=== PATIENT | female | born 1990 | race American Indian/Alaskan Native ===

== ENCOUNTER 2021-06-12 12:47 | Inpatient (IN) | payer MEDICAID ==
--- NOTE | 2021-06-12 21:40 | History and Physical Report ---
History of Present Illness Date of examination: 06/12/21 Date of admission: 06/12/21 12:47 Chief complaint: Admitted for proceedings towards delivery of , per vaginam. History of present illness: Patient was co-managed with [facility] due to history of grand multiparity. [facility] recommendations included planned delivery at 37-39 wks. Past History Past Medical History: no pertinent history Past Surgical History: no surgical history Social history: no significant social history, single - Obstetrical History Expected Date of Delivery: 06/26/21 Actual Gestation: 38 Week(s) 0 Day(s) : 8 Para: 7 Number of Pregnancies: 7 Medications and Allergies Allergies Allergy/AdvReac Type Severity Reaction Status Date / Time No Known Allergies Allergy Unverified 06/12/21 15:21 Review of Systems All systems: negative Cardiovascular: no chest pain Respiratory: no cough, no shortness of breath Gastrointestinal: no vomiting Neurological: no head injury - Vital Signs Vital signs: Vital Signs Pulse Pulse Ox 65 77 L 06/12/21 13:22 06/12/21 13:22 Temp Pulse Resp BP Pulse Ox 98.0 F 84 20 102/51 100 06/12/21 19:26 06/12/21 15:37 06/12/21 19:26 06/12/21 13:24 06/12/21 19:27 - Physical Exam Lungs: Positive: Normal air movement Abdomen: Positive: soft, distention, normal bowel sounds, other (pendulous abd, obese) Uterus: Positive: enlarged, other (Term ) Extremities: Positive: normal Deep Tendon Reflex Grade: Normal +2 - Obstetrical FHR: category 1 Results All other labs normal. Assessment and Plan - Patient Problems (1) Grand multiparity Current Visit: Yes Status: Acute (2) Obesity Current Visit: Yes Status: Acute Plan to address problem: Admit for induction.
[2021-06-12] MEDS ORDERED: MINERAL OIL 30 ML ORAL LIQD PO PRN (21:51)
[2021-06-12] MEDS ORDERED: METHYLERGONOVINE MALEATE 0.2 MG/ML VIAL IM PRN (21:51)
[2021-06-12] MEDS ORDERED: NALOXONE 0.4 MG/1 ML INJ IV PRN (21:51)
[2021-06-12] MEDS ORDERED: LIDOCAINE (2%) 20 MG/1 ML VIAL 20 ML MDV INFILTRATI ONE (21:51)
[2021-06-12] MEDS ORDERED: ACETAMINOPHEN 325 MG TAB PO PRN (21:51)
[2021-06-12] MEDS ORDERED: NalbUPHINE 10 MG/1 ML INJ IV PRN (21:51)
[2021-06-12] MEDS ORDERED: TERBUTALINE 1 MG/1 ML INJ SUB-Q PRN (21:51)
[2021-06-12] MEDS ORDERED: ePHEDrine SULFATE 50 MG/1 ML INJ IV PRN (21:51)
[2021-06-12] MEDS ORDERED: LOPERAMIDE 2 MG CAP PO PRN (21:51)
[2021-06-12] MEDS ORDERED: CARBOPROST TROMETHAMINE 250 MCG/1 ML INJ IM PRN (21:51)
[2021-06-12] MEDS ORDERED: miSOPROStol 200 MCG TAB PR PRN (21:51)
[2021-06-12] MEDS ORDERED: OXYTOCIN 10 UNIT/1 ML INJ IM PRN (21:51)
[2021-06-12] MEDS ORDERED: BUTORPHANOL 2 MG/1 ML INJ IV PRN (21:51)
[2021-06-12] MEDS ORDERED: ONDANSETRON 4 MG/2 ML INJ IV PRN (21:51)
[2021-06-12] MEDS ORDERED: OXYTOCIN DRIP 30 UNITS/500 ML BAG IV SCH (22:00)
[2021-06-12] MEDS: LACTATED RINGERS 1,000 ML IV SCH (22:57)
[2021-06-13 01:32] LABS: Hematocrit 26.5 % (30.3-42.9); Hemoglobin 8.7 gm/dl (10.1-14.3); Mean Corpuscular HGB Conc 33 % (30-34); Mean Corpuscular Volume 77 fl (79-97); Platelet Count 284 K/mm3 (140-440); Red Blood Count 3.43 M/mm3 (3.65-5.03); Red Cell Distribution Width 16.2 % (13.2-15.2)
[2021-06-13] MEDS: LACTATED RINGERS 1,000 ML IV SCH ×2 (06:30→10:37)
[2021-06-13] MEDS ORDERED: OXYTOCIN DRIP 30 UNITS/500 ML BAG IV SCH (08:30)
--- NOTE | 2021-06-13 09:12 | Anesthesia Consultation ---
Anesthesia Consult and Med Hx Date of service: 06/13/21 - Airway Anesthetic Teeth Evaluation: Good ROM Head & Neck: Adequate Mental/Hyoid Distance: Adequate Mallampati Class: Class II Intubation Access Assessment: Probably Good - Pulmonary Exam CTA: Yes - Cardiac Exam Cardiac Exam: RRR - Pre-Operative Health Status ASA Pre-Surgery Classification: ASA3 Proposed Anesthetic Plan: Epidural - Pulmonary Hx Asthma: No COPD: No Hx Pneumonia: No - Cardiovascular System Hx Hypertension: Yes (CHTN) - Central Nervous System Hx Seizures: No Hx Psychiatric Problems: No - Endocrine Hx Renal Disease: No Hx End Stage Renal Disease: No Hx Hypothyroidism: No Hx Hyperthyroidism: No - Hematic Hx Anemia: No Hx Sickle Cell Disease: No - Other Systems Hx Alcohol Use: No Hx Obesity: Yes
[2021-06-13] MEDS ORDERED: NALOXONE 2 MG/2 ML INJ IV PRN (10:00)
[2021-06-13] MEDS ORDERED: fentaNYL-BUPIV 2 MCG/ML-0.125% 200 MCG/100 ML BAG EPIDURAL SCH (10:00)
[2021-06-13] MEDS ORDERED: ePHEDrine SULFATE 50 MG/1 ML INJ IV PRN (10:00)
--- NOTE | 2021-06-13 10:07 | Progress Note ---
Labor Epidural - Labor Epidural Start Time: 09:54 Stop Time: 10:04 Performed by:: JOZEF SOSA Procedure: Patient is requesting epidural for labor pain. H&P, and labs reviewed. Procedure explained, questions answered, consent obtained. Patient in sitting position with blood pressure cuff and pulse ox on and working. Timeout performed immediately before start of procedure. Sterile chlorahexadine 0.5% prep/drape. 3 mL 1% lidocaine skin wheal at L[3]-L[4]. 18-gauge Photolitec epidural needle advanced to ifat-ja-yvzmaegedk with saline at 9 cm. Epidural catheter advanced to 15 cm, negative aspiration for blood and csf, negative test dose 3 ml 1.5% lidocaine with epinephrine. Epidural dexmedetomidine [30] mcg administered. Sterile steri-strips and tegaderm applied, followed by tape reinforcement. Patient tolerated procedure well. Abner SCHWARZ
--- NOTE | 2021-06-13 13:33 | Event Note ---
Date: 06/13/21 Saw patient. No complaints reported. Vag exam: Normal vulva. External os 5cm. Internal os difficult to evaluate - but was open. Vtx out of the pelvis. Bedside ultrasound confirmed presentation. Plan: Establish epidural block and start pitocin.
--- NOTE | 2021-06-13 13:35 | Event Note ---
Date: 06/13/21 ARM done. Clear fluid. IUPC & scalp electrode placed. Cervix 4cm dilated, 80% effaced, station 0.
[2021-06-13] MEDS ORDERED: diphenhydrAMINE 25 MG CAP PO PRN (17:03)
[2021-06-13] MEDS ORDERED: HYDROcodone/ACETAMINOPHEN 5-325 MG TAB PO PRN (17:03)
[2021-06-13] MEDS ORDERED: KETOROLAC 30 MG/1 ML INJ IV PRN (17:03)
[2021-06-13] MEDS ORDERED: PROMETHAZINE 25 MG RECT SUPP PR PRN (17:03)
[2021-06-13] MEDS ORDERED: MAGNESIUM HYDROXIDE (MOM) ORAL LIQD UDC PO PRN (17:03)
[2021-06-13] MEDS ORDERED: WITCH HAZEL/ GLYCERIN PAD TP PRN (17:03)
[2021-06-13] MEDS ORDERED: PROMETHAZINE 25 MG TAB PO PRN (17:03)
[2021-06-13] MEDS ORDERED: ACETAMINOPHEN 325 MG TAB PO PRN (17:03)
[2021-06-13] MEDS ORDERED: LANOLIN/ZINC/DIMETHICONE (LANSINOH) 7 GM TP PRN (17:03)
[2021-06-13] MEDS ORDERED: ONDANSETRON 4 MG/2 ML INJ IV PRN (17:03)
--- NOTE | 2021-06-13 17:14 | Procedure Note ---
OB Delivery Note - Delivery Date of Delivery: 06/13/21 Surgeon: AUSTIN FARRAR Estimated blood loss: <100cc - Vaginal Delivery position: OP Intrapartum events: none Delivery induction: oxytocin Delivery augmentation: rupture of membranes Delivery monitor: internal FHT, internal uterine Route of delivery: Delivery placenta: spontaneous, expressed Delivery cord: nuchal cord, 3 umbilical vessels Episiotomy: none Delivery laceration: none Anesthesia: epidural - Infant A at 1 minute: 9 at 5 minutes: 9 Gender: Female
[2021-06-13] MEDS: IBUPROFEN 600 MG TAB PO SCH (23:43)
[2021-06-14 05:28] LABS: Hematocrit 23.6 % (30.3-42.9); Hemoglobin 7.7 gm/dl (10.1-14.3)
[2021-06-14] MEDS: IBUPROFEN 600 MG TAB PO SCH ×4 (06:11→23:52)
[2021-06-14] MEDS: PRENATAL VIT27-FE FUMARATE-FOLIC ACID VIT TAB PO SCH (10:34)
--- NOTE | 2021-06-14 11:06 | Progress Note ---
Assessment and Plan - Patient Problems (1) Grand multiparity Current Visit: Yes Status: Acute (2) Obesity Current Visit: Yes Status: Acute Qualifiers: Obesity type: due to excess calories Body mass index: BMI 50.0-59.9 (3) (normal spontaneous vaginal delivery) Current Visit: Yes Status: Acute Plan to address problem: Under routine observation. On iron and vitamins for anemia. (4) Anemia affecting eighth Current Visit: Yes Status: Acute Subjective - Subjective Date of service: 06/14/21 Principal diagnosis: Grandmultiparity Interval history: Patient was co-managed with [facility] due to history of grand multiparity. [facility] recommendations included planned delivery at 37-39 wks. Patient reports: appetite normal, voiding normally, pain well controlled, ambulating normally (Decided not to grough with tubal sterilzation.) Objective - Vital Signs Latest vital signs: Vital Signs Temp Pulse Resp BP Pulse Ox Pulse Ox Pulse Ox 06/14/21 08:00 98.4 F 76 20 107/57 100 06/14/21 06:11 18 06/14/21 05:26 98.2 F 81 20 107/60 100 06/13/21 23:43 18 06/13/21 23:35 98.4 F 83 20 121/56 97 06/13/21 20:07 99 99 06/13/21 18:28 88 98 06/13/21 18:23 77 109/56 97 06/13/21 18:18 71 98 06/13/21 18:13 77 98 06/13/21 18:08 77 106/53 97 06/13/21 18:03 84 97 06/13/21 17:58 76 98 06/13/21 17:53 80 116/57 97 06/13/21 17:48 84 97 06/13/21 17:43 74 98 06/13/21 17:38 74 111/58 97 06/13/21 17:33 71 99 06/13/21 17:28 75 99 06/13/21 17:23 80 98 06/13/21 17:18 90 98 06/13/21 17:15 82 101/53 06/13/21 17:13 85 97 06/13/21 17:08 84 98 06/13/21 17:03 87 98 06/13/21 16:58 85 98 06/13/21 16:53 91 H 98 06/13/21 16:48 86 99 06/13/21 16:44 87 123/56 06/13/21 16:43 89 99 06/13/21 16:40 41 L 0 L 06/13/21 16:38 103 H 100 06/13/21 16:33 101 H 100 06/13/21 16:28 94 H 99 06/13/21 16:23 90 95 06/13/21 16:18 88 98 06/13/21 16:14 81 105/55 06/13/21 16:13 82 97 06/13/21 16:08 81 97 06/13/21 16:03 86 96 06/13/21 15:58 84 97 06/13/21 15:53 84 97 06/13/21 15:48 76 100 06/13/21 15:45 74 103/52 06/13/21 15:43 77 100 06/13/21 15:38 71 100 06/13/21 15:33 77 100 06/13/21 15:28 87 100 06/13/21 15:23 83 100 06/13/21 15:18 70 100 06/13/21 15:15 75 120/58 06/13/21 15:13 72 100 06/13/21 15:08 74 100 06/13/21 15:03 70 100 06/13/21 15:00 98.3 F 06/13/21 14:58 72 100 06/13/21 14:53 73 100 06/13/21 14:48 74 100 06/13/21 14:45 80 118/61 06/13/21 14:43 71 100 06/13/21 14:38 74 100 06/13/21 14:33 70 100 06/13/21 14:28 76 100 06/13/21 14:23 69 100 06/13/21 14:18 64 100 06/13/21 14:15 64 113/56 06/13/21 14:13 63 100 06/13/21 14:08 67 100 06/13/21 14:03 67 100 06/13/21 13:58 68 100 06/13/21 13:53 67 100 06/13/21 13:48 67 100 06/13/21 13:45 64 109/55 06/13/21 13:43 69 100 06/13/21 13:38 64 100 06/13/21 13:33 75 100 06/13/21 13:28 72 100 06/13/21 13:23 64 100 06/13/21 13:18 77 100 06/13/21 13:13 77 100 06/13/21 13:12 73 110/57 06/13/21 13:08 74 100 06/13/21 13:03 77 100 06/13/21 13:00 98.3 F 06/13/21 12:58 79 100 06/13/21 12:57 78 97/49 06/13/21 12:53 91 H 100 06/13/21 12:49 61 94 06/13/21 12:48 94 06/13/21 12:44 79 125/58 06/13/21 12:43 92 H 100 06/13/21 12:38 76 100 06/13/21 12:33 90 100 06/13/21 12:28 86 99 06/13/21 12:27 76 107/53 06/13/21 12:23 81 97 06/13/21 12:18 84 99 06/13/21 12:14 80 116/57 06/13/21 12:13 71 97 06/13/21 12:08 83 98 06/13/21 12:03 75 98 06/13/21 11:58 77 98 06/13/21 11:56 76 97/51 06/13/21 11:53 73 97 06/13/21 11:48 75 97 06/13/21 11:43 77 98 06/13/21 11:42 76 95/49 06/13/21 11:38 71 98 06/13/21 11:33 75 98 06/13/21 11:28 85 97 06/13/21 11:27 79 100/51 06/13/21 11:23 84 97 06/13/21 11:18 77 98 06/13/21 11:13 77 96 06/13/21 11:12 76 91/44 06/13/21 11:08 78 97 06/13/21 11:03 82 97 Intake and Output 06/13/21 06/14/21 06/14/21 23:59 07:59 15:59 Intake Total 120 Output Total 100 400 Balance -100 -400 120 Intake: Oral 120 Output: Urine 100 400 Void 100 400 Other: Total, Intake Amount 120 Total, Output Amount 100 400 # Voids Void 1 Estimated Blood Loss 150 - Exam Breasts: Present: deferred Lungs: Present: Normal air movement Abdomen: Present: soft (obese, pendulous.) Uterus: Present: normal, firm Extremities: Present: normal Deep Tendon Reflex Grade: Normal +2 - Labs Labs: Abnormal lab results 06/14/21 Range/Units 05:04 Hgb 7.7 L (10.1-14.3) gm/dl Hct 23.6 L (30.3-42.9) %
--- NOTE | 2021-06-14 12:13 | Post Anesthesia Evaluation ---
- Post Anesthesia Evaluation Patient Participated: Yes Airway Patent: Yes Stable Respiratory Function: Yes Nausea/Vomiting: No Temp > 96.8F: Yes Pain Manageable: Yes Adequeate Hydration: Yes Anesthesia Complications: No Block Receding Appropriately: Yes
[2021-06-15] MEDS: IBUPROFEN 600 MG TAB PO SCH ×2 (05:27→12:15)
[2021-06-15] MEDS: PRENATAL VIT27-FE FUMARATE-FOLIC ACID VIT TAB PO SCH (11:16)
--- NOTE | 2021-06-15 12:52 | Progress Note ---
Assessment and Plan - Patient Problems (1) Grand multiparity Current Visit: Yes Status: Acute (2) Obesity Current Visit: Yes Status: Acute Qualifiers: Obesity type: due to excess calories Body mass index: BMI 50.0-59.9 (3) (normal spontaneous vaginal delivery) Current Visit: Yes Status: Acute Plan to address problem: For home today. (4) Anemia affecting eighth Current Visit: Yes Status: Acute Subjective - Subjective Date of service: 06/15/21 Principal diagnosis: Grandmultiparity Interval history: Patient was co-managed with [facility] due to history of grand multiparity. [facility] recommendations included planned delivery at 37-39 wks. 06/15/21 PPD#2. Had no complaints and wants to return home. Patient reports: appetite normal, voiding normally, pain well controlled, ambulating normally : doing well Objective - Vital Signs Latest vital signs: Vital Signs Temp Pulse Resp BP BP Pulse Ox Pulse Ox 06/15/21 08:00 99 06/15/21 07:57 98.0 F 66 16 108/53 98 06/15/21 05:27 20 06/15/21 00:00 98.8 F 74 18 108/69 06/14/21 23:52 20 06/14/21 19:50 99 06/14/21 16:31 98.2 F 76 20 117/57 100 06/14/21 14:05 16 Pulse Ox 06/15/21 08:00 99 06/15/21 07:57 06/15/21 05:27 06/15/21 00:00 06/14/21 23:52 06/14/21 19:50 99 06/14/21 16:31 06/14/21 14:05 Intake and Output 06/14/21 06/15/21 06/15/21 23:59 07:59 15:59 Intake Total 680 240 Balance 680 240 Intake: Oral 440 240 Intake, Free Water 240 Other: Total, Intake Amount 200 240 # Voids Void 1 1 1 - Exam Breasts: Present: normal Lungs: Present: Normal air movement Abdomen: Present: soft, normal bowel sounds Extremities: Present: normal Deep Tendon Reflex Grade: Normal +2
--- NOTE | 2021-06-15 12:55 | Discharge Summary ---
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 Booklet Call your doctor immediately for: * Fever > 100.5 * Heavy vaginal bleeding ( >1 pad per hour) * Severe persistent headache * Shortness of breath * Reddened, hot, painful area to leg or breast * Drainage or odor from incision. * Keep incision clean and dry at all times and follow doctor's instructions regarding bathing/showering - Follow up plan Follow up: AUSTIN FARRAR MD [Primary Care Provider] - 7 Days
--- NOTE | 2021-06-15 14:02 | Consultation ---
History of Present Illness - Reason for Consult Consult date: 06/15/21 Reason for consult: [place] score of 10 - Chief Complaint Chief complaint: Admitted for proceedings towards delivery of , per vaginam. - History of Present Psychiatric Illness Ankit Arreola is a 30 year old female with no prior psychiatry history. In my interview with the patient, she reports feeling depressed sometimes and states that it has been going on for a while now. The patient states she feel depressed two days out seven days in a week; she rates depression as a 2/10 today. The patient is naive to psychotropic medications and she is not receptive to starting medication. She denies any current suicidal/homicidal ideation and oj es hallucinations. PAST PSYCHIATRIC HISTORY: Denies Diagnoses: Denies Suicide attempts or Self-harm behavior: Denies Prior psychiatric hospitalizations:Yes Substance Abuse history: Denies Previous psychiatric medications tried:Denies Outpatient treatment: Denies PAST MEDICAL HISTORY: None reported or document Family Psychiatric History: None reported or documented SOCIAL HISTORY Marital Status: Single Living Arrangements: Lives with mother Employment Status: unknown Access to guns/weapons: Denies Education: 9th grade History of Abuse:unknown Legal History: unknown REVIEW OF SYSTEMS Constitutional: Negative for weight loss ENT: Negative for stridor Respiratory: Negative for cough or hemoptysis All other systems reviewed and are negative MENTAL STATUS EXAMINATION General Appearance and Behavior: Age appropriate, good hygiene, wearing appropriate clothes, calm and cooperative polite with questioning. Cooperation: engaged Psychomotor Behavior: Psychomotor normal Mood: ok Affect and affective range: congruent with stated mood Thought Process:Goal directed Thought Not suicidal Speech:normal Suicidal Ideation: Denies Homicidal Ideation: Denies Hallucinations: Denies Delusions: None elicited Impulse Control: Normal Insight and Judgment: Limited insight and judgment Memory: Abnormal Attention: attentive Orientation: alert and oriented Assessment and Plan (1) Current Visit: Yes Status: Acute Treatment Plan Risks, benefits and alternatives of medications discussed with the patient, questions answered and consent obtained from patient. PSYCHOTHERAPY: Supportive psychotherapy provided MEDICAL: Per primary team DELIRIUM PRECAUTIONS: Please re-orient patient frequently, keep lights on during the day, and minimize benzodiazepines and opiates as these medications could worsen patient's confusion. AUDIT SPEC: Defer to primary DISPOSITION: Do not recommend acute inpatient psychiatric hospitalization at this time. FOLLOW-UP: Will sign off The patient is advised to followup with outpatient psychiatry The patient is advised that if suicidal/homicidal ideation or any endangering thoughts arise to call the crisis hot line or go to the ED. Thank you for the consult. Please contact with any questions and/or concerns. Medications and Allergies Allergies Allergy/AdvReac Type Severity Reaction Status Date / Time No Known Allergies Allergy Verified 06/12/21 22:18 Home Medications Medication Instructions Recorded Confirmed Last Taken Type No Known Home Medications [No 06/14/21 06/14/21 Unknown History Reported Home Medications] Active Meds: Active Medications Hydrocodone Bitart/Acetaminophen (Hydrocodone/Acetaminophen 5-325 Mg Tab) 2 each PO Q6H PRN PRN Reason: Pain, Moderate (4-6) Bisacodyl (Bisacodyl 10 Mg Rect Supp) 10 mg KS BID PRN PRN Reason: Constipation Diphenhydramine HCl (Diphenhydramine 25 Mg Cap) 25 mg PO Q6H PRN PRN Reason: Itching Ibuprofen (Ibuprofen 600 Mg Tab) 600 mg PO Q6HR [facility] Last Admin: 06/15/21 12:15 Dose: 600 mg Documented by: Ketorolac Tromethamine (Ketorolac 30 Mg/1 Ml Inj) 30 mg IV Q6H PRN PRN Reason: Pain, Moderate (4-6) Stop: 06/18/21 17:02 Magnesium Hydroxide (Magnesium Hydroxide (Mom) Oral Liqd Udc) 30 ml PO HS PRN PRN Reason: Constipation Multi-Ingredient Ointment (Lanolin/Zinc/Dimethicone (Lansinoh) 7 Gm) 1 applic TP PRN PRN PRN Reason: Sore Nipples Multivitamins/Iron/Calcium ( Qms59-Vz Fumarate-Folic Acid Vit Tab) 1 each PO QDAY [facility] Last Admin: 06/15/21 11:16 Dose: 1 each Documented by: Promethazine HCl (Promethazine 25 Mg Rect Supp) 25 mg KS Q6H PRN PRN Reason: Nausea And Vomiting Promethazine HCl (Promethazine 25 Mg Tab) 25 mg PO Q6H PRN PRN Reason: Nausea And Vomiting Witch Mickie/Glycerin (Witch Mickie/ Glycerin Pad) 1 each TP PRN PRN PRN Reason: Hemorrhoid/cleansing/soothing Last Admin: 06/15/21 13:17 Dose: 1 each Documented by: Mental Status Exam - Vital signs Last Vital Signs Temp 98.0 F 06/15/21 07:57 Pulse 66 06/15/21 07:57 Resp 16 06/15/21 07:57 BP 108/53 06/15/21 07:57 Pulse Ox 99 06/15/21 08:00 Results Result Diagrams: 06/14/21 05:04 All other labs normal.
[2021-06-15 16:00] VITALS: BP 121/58
== END 2021-06-15 16:55 | disposition home or self-care (01) | DRG 774 ==
LOC: LD 12:47 → OB 06-13 20:44
PROVIDERS: ADMIT Obstetrics & Gynecology; ATTEND Obstetrics & Gynecology
PROC: 10E0XZZ Delivery of Products of Conception, External Approach (ICD-10-PCS; principal; 2021-06-13)
PROC: 3E0R3BZ Introduction of Anesthetic Agent into Spinal Canal, Percutaneous Approach (ICD-10-PCS; 2021-06-13)
PROC: 00HU33Z Insertion of Infusion Device into Spinal Canal, Percutaneous Approach (ICD-10-PCS; 2021-06-13)
PROC: 10907ZC Drainage of Amniotic Fluid, Therapeutic from Products of Conception, Via Natural or Artificial Opening (ICD-10-PCS; 2021-06-13)
DX: O99.214 Obesity complicating childbirth (principal); O10.92 Unspecified pre-existing hypertension complicating childbirth; Z3A.38 38 weeks gestation of pregnancy; Z64.1 Problems related to multiparity; Z37.0 Single live birth; E66.09 Other obesity due to excess calories; O69.81X0 Labor and delivery complicated by cord around neck, without compression, not applicable or unspecified; O99.02 Anemia complicating childbirth; Z68.43 Body mass index [BMI] 50.0-59.9, adult; Z20.822 Contact with and (suspected) exposure to COVID-19
CPT/HCPCS: 36415; 85014; 85018; 85027; 86850; 86900; 86901; 99211; G0378; G0463; J2590; J7120; U0003